=== PATIENT | male | born 1980 | race Two or more races ===

== ENCOUNTER → 2024-01-31 | Outpatient (CLI) | payer OTHER, SELFPAY ==
[2024-01-31 08:27] LABS: Glucose Estimated Average 183 mg/dL (80-131)
== END | disposition home or self-care (01) ==
LOC: COPL 07:50
PROVIDERS: PCP Family Medicine; Referring Provider Family Medicine; Visit Provider Family Medicine
DX: Z01.89 Encounter for other specified special examinations (principal)
CPT/HCPCS: 36415; 83036

== ENCOUNTER → 2024-02-20 | Outpatient (CLI) | payer OTHER, SELFPAY ==
[2024-02-20 09:22] LABS: Basophils % (Auto) 1 % (0-2.5); Eosinophils # (Auto) 0.2 Thou/mm3 (0.0-0.5); Eosinophils % (Auto) 3 % (0-10); Hematocrit 48.4 % (41.0-53.0); Hemoglobin 15.6 g/dL (13.5-16.0); Immature Granulocytes % (Auto) 0 % (0-0); Immature Granulocytes Auto 0.02 Thou/mm3 (0.00-0.00); Lymphocytes # (Auto) 1.2 Thou/mm3 (1.0-4.8); Lymphocytes % (Auto) 18 % (10-50); Mean Corpuscular HGB Conc 32.2 g/dl (31.0-37.0); Mean Corpuscular Hemoglobin 26.2 pg (25.0-35.0); Mean Corpuscular Volume 81 fL (80-100); Monocytes # (Auto) 0.5 Thou/mm3 (0.0-0.8); Monocytes % (Auto) 8 % (0-12); Neutrophils # (Auto) 4.6 Thou/mm3 (1.8-7.7); Neutrophils % (Auto) 71 % (37-80); Nucleated Red Blood Cell % 0 /100 WBC (0); Platelet Count 272 Thou/mm3 (140-440); RDW Standard Deviation 41.4 fL (35.1-43.9); Red Blood Count 5.95 Miln/mm3 (4.50-5.90); White Blood Count 6.5 Thou/mm3 (3.8-10.6)
[2024-02-20 09:28] LABS: Alanine Aminotransferase 45 U/L (10-49); Alkaline Phosphatase 76 U/L (46-116); Anion Gap 8 (7-16); Aspartate Amino Transferase 11 U/L (0-34); BUN/Creatinine Ratio 19 Ratio (12-20); Bilirubin,Direct 0.1 mg/dL (0.0-0.3); Bilirubin,Total 0.4 mg/dL (0.3-1.2); Blood Urea Nitrogen 15 mg/dL (9-23); Calcium 9.7 mg/dL (8.3-10.6); Carbon Dioxide 30.1 mMol/L (20.0-31.0); Cardiac Risk Estimate 5.7 RATIO (4.0-6.7); Chloride 100 mMol/L (98-107); Cholesterol 260 mg/dL (132-200); Creatinine (Component) 0.8 mg/dL (0.6-1.3); Glucose 197 mg/dL (74-106); HDL Cholesterol 46 mg/dL (40-60); LDL Cholesterol,Calculated 184 mg/dL (0-130); Osmolality,Calculated 281 (275-295); Phosphorous 3.3 mg/dL (2.4-5.1); Potassium 4.4 mMol/L (3.4-5.1); Sodium 138 mMol/L (136-145); Total Protein 7.3 gm/dL (5.7-8.2); Triglycerides 148 mg/dL (30-150); eGFR > 60 See Note
[2024-02-20 09:48] LABS: Hepatitis B Surface Ab NonReact(Not Immune) (Immune); Hepatitis B Surface Antigen Non Reactive (Non React)
[2024-02-27 06:53] LABS: Hepatitis B Core Ab,Total* NONREACTIVE; Homocysteine* 13.2 umol/L (<11.4); hs-CRP* 2.9 mg/L
== END | disposition home or self-care (01) ==
LOC: COPL 08:03
PROVIDERS: PCP Family Medicine; Referring Provider Family Medicine; Visit Provider Family Medicine
DX: G35 Multiple sclerosis (principal); E34.9 Endocrine disorder, unspecified; E88.9 Metabolic disorder, unspecified; Z11.59 Encounter for screening for other viral diseases
CPT/HCPCS: 36415; 80048; 80061; 80069; 80076; 83090; 84100; 85025; 86141; 86704; 86706; 87340

== ENCOUNTER → 2024-05-21 | Outpatient (CLI) | payer OTHER, SELFPAY ==
[2024-05-21 16:25] LABS: Basophils % (Auto) 1 % (0-2.5); Eosinophils # (Auto) 0.1 Thou/mm3 (0.0-0.5); Eosinophils % (Auto) 1 % (0-10); Hematocrit 46.7 % (41.0-53.0); Hemoglobin 15.3 g/dL (13.5-16.0); Immature Granulocytes % (Auto) 0 % (0-0); Immature Granulocytes Auto 0.02 Thou/mm3 (0.00-0.00); Lymphocytes # (Auto) 1.5 Thou/mm3 (1.0-4.8); Lymphocytes % (Auto) 20 % (10-50); Mean Corpuscular HGB Conc 32.8 g/dl (31.0-37.0); Mean Corpuscular Hemoglobin 26.7 pg (25.0-35.0); Mean Corpuscular Volume 82 fL (80-100); Monocytes # (Auto) 0.7 Thou/mm3 (0.0-0.8); Monocytes % (Auto) 9 % (0-12); Neutrophils % (Auto) 68 % (37-80); Nucleated Red Blood Cell % 0 /100 WBC (0); Platelet Count 259 Thou/mm3 (140-440); RDW Standard Deviation 38.7 fL (35.1-43.9); Red Blood Count 5.72 Miln/mm3 (4.50-5.90); White Blood Count 7.4 Thou/mm3 (3.8-10.6)
[2024-05-21 16:42] LABS: Vitamin D 25 Hydroxy Total 40.1 ng/mL (7.3-40.2)
[2024-05-21 17:04] LABS: Alanine Aminotransferase 65 U/L (10-49); Albumin, Serum 4.4 gm/dL (3.5-5.0); Albumin/Globulin Ratio 1.8 (1.2-2.2); Alkaline Phosphatase 74 U/L (46-116); Anion Gap 12 (7-16); Aspartate Amino Transferase 44 U/L (0-34); BUN/Creatinine Ratio 17 Ratio (12-20); Bilirubin,Total 0.5 mg/dL (0.3-1.2); Blood Urea Nitrogen 15 mg/dL (9-23); Calcium 9.8 mg/dL (8.3-10.6); Calcium (Corrected) 9.8 mg/dL (8.5-10.1); Carbon Dioxide 26.8 mMol/L (20.0-31.0); Chloride 102 mMol/L (98-107); Creatinine (Component) 0.9 mg/dL (0.6-1.3); Globulin 2.5 gm/dL (2.3-3.5); Glucose 126 mg/dL (74-106); Osmolality,Calculated 284 (275-295); Potassium 4.1 mMol/L (3.4-5.1); Sodium 141 mMol/L (136-145); Total Protein 6.9 gm/dL (5.7-8.2); eGFR > 60 See Note
[2024-05-25 05:05] LABS: CD19 Percentage 1 % (6-29); CD19, Absolute <20 cells/uL (110-660); CD3 Percentage 65 % (57-85); CD3, Absolute 955 cells/uL (840-3060); CD3-CD16+CD56+ % 33 % (4-25); CD3-CD16+CD56+ (Abs) 503 cells/uL (70-760); CD4 Percentage 50 % (30-61); CD4, Absolute 704 cells/uL (490-1740); CD4/CD8 Ratio 3.01 (0.86-5.00); CD8 Percentage 17 % (12-42); CD8, Absolute 234 cells/uL (180-1170)
[2024-05-25 06:57] LABS: IgG, Serum* 837 mg/dL (600-1640); Lymphocytes, Absolute 1463 cells/uL (850-3900)
== END | disposition home or self-care (01) ==
LOC: COPL 15:15
PROVIDERS: PCP Family Medicine; Referring Provider Psychiatry & Neurology Neurology; Visit Provider Psychiatry & Neurology Neurology
DX: G35 Multiple sclerosis (principal)
CPT/HCPCS: 36415; 80053; 82306; 82784; 85025; 86355; 86357; 86359; 86360

== ENCOUNTER → 2024-05-30 | Outpatient (CLI) | payer OTHER, SELFPAY ==
--- NOTE | 2024-05-30 | XR_ITS ---
Examination: Foot, right, 3 views Technique: AP, oblique, lateral views foot, 3 views Date and time of exam: May 30, 2024 1302 hours INDICATIONS: Left foot pain beginning one month ago. FINDINGS: Mild narrowing first metatarsophalangeal joint No fracture or dislocation Mild ossification in the Achilles insertion Mild osteoarthritis tibiotalar and intertarsal joints IMPRESSION: Mild osteoarthritis No erosive arthritis
== END | disposition home or self-care (01) ==
LOC: CDIM 11:38
PROVIDERS: PCP Family Medicine; Referring Provider Family Medicine; Visit Provider Family Medicine
DX: M19.072 Primary osteoarthritis, left ankle and foot (principal)
CPT/HCPCS: 73630

== ENCOUNTER 2024-08-09 11:00 | Outpatient (RCR) | payer OTHER, SELFPAY ==
--- NOTE | 2024-07-26 10:36 | PTNOTE_ITS ---
PT OP Initial Eval Patient Information Outpatient Physical Therapy Treatment Date: 07/26/24 Visit Reasons: MS neck pain Medical Diagnosis: neck and shoulder pain, gait, balance, strengthening Treatment Dx #1: neck pain Start of Care: 07/26/24 Date of Onset: 6 months ago Smoking Status Smoking Status: Never smoker Initial Assessment Subjective: Pt is 44 yr old male who reports neck and shoulder pain x6 months. He's not sure how the pain started and points to the back of the shoulders and neck. The pain interferes with driving, turning head repetitively. PMH: MS, HTN, DM, allergies Imaging: MRI of C/S from 2019 C4-C5 2 mm central disc protrusion, C5-C6 4 mm central right paracentral osteophyte disc complex, mild right neural foraminal stenosis Pt goal: less neck and shoulder pain Objective: C/S AROM: ? Ext 70% with pain at end-range ? Flexion full with slight onset of ssx ? L rotation: 80% ? R rotation: 90% ? B SB: 25 deg ? TTP: moderate of lower C/S paraspinals and UT?s ? B shoulder AROM: full FF ? Mi's reflex: negative ? Posture: fwd head and shoulder posture. 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 Pt requires skilled therapy to meet goals and has fair rehab potential. Eval followed by HEP printout. Short Term and Skilled Nursing Goals 1. Ind with HEP ? 2. Improved sitting posture to neutral head and shoulders x5' ? 3. Decreased TTP of lower C/S from mod to min ? 4. Pt will turn head L to R x5 with <=3/10 pain Treatment Plan 1. Manual therapy ? 2. Therex ? 3. Modalities as indicated, mechanical traction, estim, moist heat, ice Frequency and Duration: 1-2x a week for 12 Rx sessions plus the evaluation Certification Dates: 07/26/24 to 10/24/24 Procedure Charges OP PT Eval Mod Complex 30 minutes: Yes
--- NOTE | 2024-08-07 11:23 | PT.ODAYNRPT ---
PT Outpatient Daily Note OP Daily Note Outpatient Physical Therapy Treatment Date: 08/07/24 Visit Reasons: MS neck pain Subjective: Same as evaluation Objective: See F/S for therex MHP: x5' Mechanical traction x7' 12 lbs Assessment: Pt has difficulty with chin tucks and pt stands with fwd head posture. Updated HEP Plan: Continue per POC Length of Time (minutes) of Treatment: 30 Minutes Procedure Charges Therapeutic Exercise 30 minutes: Yes
--- NOTE | 2024-08-09 13:55 | PT.ODAYNRPT ---
PT Outpatient Daily Note OP Daily Note Outpatient Physical Therapy Treatment Date: 08/09/24 Visit Reasons: MS neck pain Subjective: About the same as last time Objective: See F/S for therex MHP: x5' Mechanical traction x7' 12 lbs Assessment: Pt has difficulty with chin tucks and pt stands with fwd head posture. Plan: Continue per POC Length of Time (minutes) of Treatment: 30 Minutes Procedure Charges Therapeutic Exercise 30 minutes: Yes
== END 2024-08-13 23:59 | disposition home or self-care (01) ==
LOC: CPTX 11:00
PROVIDERS: PCP Nurse Practitioner; Referring Provider Nurse Practitioner; Visit Provider Nurse Practitioner
DX: M54.2 Cervicalgia (principal); M25.519 Pain in unspecified shoulder; I10 Essential (primary) hypertension; E11.9 Type 2 diabetes mellitus without complications
CPT/HCPCS: 97110; 97162

== ENCOUNTER 2024-09-04 11:00 | Outpatient (RCR) | payer OTHER, SELFPAY ==
--- NOTE | 2024-08-20 16:32 | PT.ODAYNRPT ---
PT Outpatient Daily Note OP Daily Note Outpatient Physical Therapy Treatment Date: 08/20/24 Visit Reasons: MS NECK PAIN Subjective: Less neck pain after last time Objective: See F/S for therex MHP: x5' Mechanical traction x7' 12 lbs Assessment: Pt has difficulty with chin tucks and pt stands with fwd head posture. Plan: Continue per POC Length of Time (minutes) of Treatment: 30 Minutes Procedure Charges Therapeutic Exercise 30 minutes: Yes
--- NOTE | 2024-08-22 13:20 | PT.ODAYNRPT ---
PT Outpatient Daily Note OP Daily Note Outpatient Physical Therapy Treatment Date: 08/22/24 Visit Reasons: MS NECK PAIN Subjective: Less neck pain after last time Objective: See F/S for therex Mechanical traction x7' 12 lbs Assessment: Pt has difficulty with chin tucks and pt stands with fwd head posture and he can partially correct. Plan: Continue per POC Length of Time (minutes) of Treatment: 30 Minutes Procedure Charges Therapeutic Exercise 30 minutes: Yes
--- NOTE | 2024-09-04 13:12 | PT.ODAYNRPT ---
PT Outpatient Daily Note OP Daily Note Outpatient Physical Therapy Treatment Date: 09/04/24 Visit Reasons: MS NECK PAIN Subjective: Less neck pain after last time Objective: See F/S for therex Mechanical traction x7' 12 lbs Assessment: Pt has difficulty with chin tucks but can demo with cues and pt stands with fwd head posture and he can partially correct. Plan: Continue per POC Length of Time (minutes) of Treatment: 30 Minutes Procedure Charges Therapeutic Exercise 30 minutes: Yes
== END 2024-09-13 23:59 | disposition home or self-care (01) ==
LOC: CPTX 11:00
PROVIDERS: PCP Nurse Practitioner; Referring Provider Nurse Practitioner; Visit Provider Nurse Practitioner
DX: M54.2 Cervicalgia (principal); M25.512 Pain in left shoulder; M25.511 Pain in right shoulder; I10 Essential (primary) hypertension; E11.9 Type 2 diabetes mellitus without complications
CPT/HCPCS: 97110

== ENCOUNTER → 2024-11-15 | Outpatient (CLI) | payer OTHER, SELFPAY ==
[2024-11-15 08:38] LABS: Basophils # (Auto) 0.0 Thou/mm3 (0.0-0.2); Basophils % (Auto) 1 % (0-2.5); Eosinophils # (Auto) 0.2 Thou/mm3 (0.0-0.5); Eosinophils % (Auto) 4 % (0-10); Hematocrit 48.5 % (41.0-53.0); Hemoglobin 16.1 g/dL (13.5-16.0); Immature Granulocytes Auto 0.01 Thou/mm3 (0.00-0.00); Lymphocytes # (Auto) 1.3 Thou/mm3 (1.0-4.8); Lymphocytes % (Auto) 30 % (10-50); Mean Corpuscular HGB Conc 33.2 g/dl (31.0-37.0); Mean Corpuscular Hemoglobin 27.8 pg (25.0-35.0); Mean Corpuscular Volume 84 fL (80-100); Monocytes # (Auto) 0.4 Thou/mm3 (0.0-0.8); Monocytes % (Auto) 10 % (0-12); Neutrophils # (Auto) 2.3 Thou/mm3 (1.8-7.7); Neutrophils % (Auto) 55 % (37-80); Nucleated Red Blood Cell # 0.00 Thou/mm3 (0.00-0.00); Nucleated Red Blood Cell % 0 /100 WBC (0); Platelet Count 219 Thou/mm3 (140-440); RDW Standard Deviation 40.7 fL (35.1-43.9); Red Blood Count 5.80 Miln/mm3 (4.50-5.90); White Blood Count 4.2 Thou/mm3 (3.8-10.6)
[2024-11-15 09:16] LABS: Vitamin D 25 Hydroxy Total 59.3 ng/mL (7.3-40.2)
[2024-11-15 09:21] LABS: Alanine Aminotransferase 60 U/L (10-49); Albumin, Serum 4.5 gm/dL (3.5-5.0); Albumin/Globulin Ratio 1.9 (1.2-2.2); Alkaline Phosphatase 63 U/L (46-116); Anion Gap 12 (7-16); Aspartate Amino Transferase 40 U/L (0-34); BUN/Creatinine Ratio 12 Ratio (12-20); Bilirubin,Total 0.3 mg/dL (0.3-1.2); Blood Urea Nitrogen 11 mg/dL (9-23); Calcium 9.9 mg/dL (8.3-10.6); Calcium (Corrected) 9.9 mg/dL (8.5-10.1); Carbon Dioxide 28.4 mMol/L (20.0-31.0); Chloride 102 mMol/L (98-107); Creatinine (Component) 0.9 mg/dL (0.6-1.3); Globulin 2.4 gm/dL (2.3-3.5); Glucose 173 mg/dL (74-106); Osmolality,Calculated 286 (275-295); Potassium 4.2 mMol/L (3.4-5.1); Sodium 142 mMol/L (136-145); Total Protein 6.9 gm/dL (5.7-8.2); eGFR > 60 See Note
[2024-11-20 11:18] LABS: CD19 Percentage 1 % (6-29); CD19, Absolute <20 cells/uL (110-660); CD3 Percentage 66 % (57-85); CD3, Absolute 890 cells/uL (840-3060); CD3-CD16+CD56+ % 32 % (4-25); CD3-CD16+CD56+ (Abs) 440 cells/uL (70-760); CD4 Percentage 51 % (30-61); CD4, Absolute 681 cells/uL (490-1740); CD4/CD8 Ratio 3.36 (0.86-5.00); CD8 Percentage 15 % (12-42); CD8, Absolute 203 cells/uL (180-1170)
[2024-11-20 14:12] LABS: IgG, Serum* 845 mg/dL (600-1640); IgM, Serum* 73 mg/dL (50-300); Lymphocytes, Absolute 1344 cells/uL (850-3900)
== END | disposition home or self-care (01) ==
LOC: COPL 07:54
PROVIDERS: PCP Family Medicine; Referring Provider Nurse Practitioner; Visit Provider Nurse Practitioner
DX: Z01.812 Encounter for preprocedural laboratory examination (principal); D72.819 Decreased white blood cell count, unspecified; G35 Multiple sclerosis; Z51.81 Encounter for therapeutic drug level monitoring; Z79.899 Other long term (current) drug therapy
CPT/HCPCS: 36415; 80053; 82306; 82784; 85025; 86355; 86357; 86359; 86360

== ENCOUNTER → 2025-01-15 | Outpatient (CLI) | payer OTHER, SELFPAY ==
--- NOTE | 2025-01-15 | XR_ITS ---
Examination: Knee, left, 3 views Technique: Knee AP, lateral, oblique 3 views Date and time of exam: January 15, 2025, 0817 hours INDICATIONS: Patient fell 1 month ago with injury of the knee, knee pain. FINDINGS: Prominent osteopenia. No fracture or dislocation Mild narrowing medial joint space IMPRESSION: No fracture or dislocation
== END | disposition home or self-care (01) ==
PROVIDERS: PCP Family Medicine; Referring Provider Family Medicine; Visit Provider Family Medicine
DX: S83.92XA Sprain of unspecified site of left knee, initial encounter (principal); W19.XXXA Unspecified fall, initial encounter
CPT/HCPCS: 73562